=== PATIENT | female | born 1985 | race African-American/Black ===

== ENCOUNTER → 2017-10-05 | Outpatient (CLI) | payer MEDICARE, MEDICAID ==
[~2017-10-05] MED LIST: ABIL5; ACET-3161 PO; AMLO2.5T2; ATEN-175; CARI350T PO; DIAZ2TAB; DONE5TAB33 PO; DONE5TAB7; FLUO10TA3; FURO-152; HYDR-4135; KEPP250; LORA0.5T2 PO; SERT-112 PO; TEMA15CA PO; TEMA30CA5
== END | disposition home or self-care (01) ==
LOC: CARD 11:02
PROVIDERS: ATTEND Psychiatry & Neurology Neurology
DX: G93.49 Other encephalopathy (principal); F07.81 Postconcussional syndrome